=== PATIENT | female | born 1965 | race Caucasian/White ===

== ENCOUNTER → 2017-01-18 | Emergency (ER) | payer OTHER ==
[~2017-01-18] VITALS: Ht 167.6 cm; Wt 77.1 kg
[~2017-01-18] MED LIST: ATENOLOL50 MG PO; BACLOFEN10 MG PO; CARAFATE1 GM/10 ML PO; CITALOPRAM HBR40 MG PO; GABAPENTIN800 MG PO; HYDROCHLOROTHIA25 MG PO; LOSARTAN POTASS25 MG PO; PROCHLORPERAZIN10 MG PO; RISPERIDONE1 MG PO; TRAZODONE HCL50 MG PO; ZYPREXA5 MG PO
== END ==
LOC: ED 13:52
DX: F41.9 Anxiety disorder, unspecified (principal); I10 Essential (primary) hypertension; F17.200 Nicotine dependence, unspecified, uncomplicated; Z90.710 Acquired absence of both cervix and uterus; Z88.5 Allergy status to narcotic agent; Z79.899 Other long term (current) drug therapy
CPT/HCPCS: 80053; 80176; 81001; 84443; 85025; 96372; 99285; G0480; J3486